=== PATIENT | male | born 2005 | race Hispanic/Latino ===

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

== ENCOUNTER 2023-03-28 20:20 | Emergency (ER) | payer MEDICAID ==
[~2023-03-28 20:20] MED LIST: CEPH500B PO; PHEN-846 PO
== END 2023-03-28 20:40 | disposition left against medical advice (07) ==
LOC: EDH 20:20
DX: S69.91XA Unspecified injury of right wrist, hand and finger(s), initial encounter (principal); Z53.21 Procedure and treatment not carried out due to patient leaving prior to being seen by health care provider; X58.XXXA Exposure to other specified factors, initial encounter; Y93.89 Activity, other specified; Y92.89 Other specified places as the place of occurrence of the external cause; Y99.8 Other external cause status

== ENCOUNTER 2024-07-22 23:48 | Emergency (ER) | payer MEDICAID ==
[~2024-07-22] VITALS: Ht 172.7 cm; Wt 61.2 kg
--- NOTE | 2024-07-23 | ERN ---
ED Note History of Present Illness Stated Complaint: CP Chief Complaint: Chest Pain Time Seen by MD: 23:52 Dictation: PATIENT IS A 18-YEAR-OLD MALE HERE WITH HIS MOTHER WITH COMPLAINTS OF LEFT ANTERIOR CHEST PAIN THAT IS LOCALIZED AND CAN BE REPRODUCED WITH PALPATION HE HAS HAD FOR ONE WEEK. NO JAW PAIN NO ARM PAIN NO BACK PAIN. NO HISTORY OF CAD. PATIENT STATES THAT HE HAS HAD IT SINCE TUESDAY BUT DID NOT TELL HIS MOTHER UNTIL TONIGHT. NO HISTORY OF CARDIAC DISEASE HYPERTENSION DIABETES NO DRUG USE. Allergies: Coded Allergies: No Known Drug Allergies (Unverified Allergy, Unknown, 01/17/19) Home Meds Active Scripts Phenazopyridine HCl (Pyridium) 100 Mg Tab, 100 MG PO TID for 3 Days, #9 TAB Prov:JACK CERNA 10/12/20 Cephalexin Monohydrate (Keflex) 500 Mg Cap, 500 MG PO TID for 7 Days, #21 CAP Prov:JACK CERNA 10/12/20 Past Medical History Past Medical History: No Pertinent History Additional Past Medical Hx: ADHD Surgical History: None Family History: Negative Social History: Negative RN Note Reviewed/Agreed w/PFSH: Yes Review of System Dictation CONSTITUTIONAL: NEGATIVE EXCEPT FOR HPI HEAD/FACE: NEGATIVE EXCEPT FOR HPI EENT: NEGATIVE EXCEPT FOR HPI RESPIRATORY: NEGATIVE EXCEPT FOR HPI LEFT ANTERIOR CHEST PAIN GASTROINTESTINAL/ABDOMINAL: NEGATIVE EXCEPT FOR HPI GENITOURINARY: NEGATIVE EXCEPT FOR HPI MUSCULOSKELETAL: NEGATIVE EXCEPT FOR HPI INTEGUMENTARY: NEGATIVE EXCEPT FOR HPI NEUROLOGICAL/PSYCH: NEGATIVE EXCEPT FOR HPI HEMATOLOGIC/LYMPHATIC: NEGATIVE EXCEPT FOR HPI ALL SYSTEMS NEGATIVE, EXCEPT NOTED ABOVE. 13 POINT REVIEW OF SYSTEMS ASSESSED AND ALL NEGATIVE EXCEPT FOR ABOVE. Initial Vital Sign VS Vital Signs Date Time Temp Pulse Resp B/P (MAP) Pulse Ox O2 Delivery O2 Flow Rate FiO2 07/22/24 23:49 98.1 71 19 115/74 100 Room Air 07/23/24 00:12 0 21 Physical Exam Dictation VITAL SIGNS REVIEWED GENERAL APPEARANCE: ALERT, ORIENTED X 3, NO ACUTE DISTRESS, WELL DEVELOPED, NOURISHED. HEAD AND FACE: NON-TRAUMATIC. EYES: PERRL, PINK CONJUNCTIVAS, EYELID NO TRAUMA, ANTERIOR CHAMBER WITH ARCUS SENILIS. EARS: PINNAS INTACT AND NO SIGNS OF TRAUMA OR ERYTHEMA EAR CANALS CLEAR AND NO DISCHARGE TM NO ERYTHEMA NOSE: NO DISCHARGE, NO BLEEDING. OROPHARYNX: MOUTH NORMAL, TONGUE PINK, PHARYNX CLEAR,NO ERYTHEMA, TONSILS NO EXUDATES, NO ABSCESSES NOTED, MUCOUS MEMBRANE MOIST NECK: SUPPLE, NON-TENDER, NO THYROMEGALY, NO MASSES, NO JVD, NO BRUITS BREAST:DEFERRED CHEST: LEFT ANTERIOR CHEST WALL TENDERNESS, NO CREPITUS, NO PARADOXICAL MOVEMENT, NO RETRACTIONS PALPATION REPRODUCES PAIN LUNGS:CLEAR, WELL-VENTILATED, SYMMETRIC, NO RALES, NO WHEEZING, NO RHONCHI, NO STRIDOR, GOOD BREATH SOUNDS BILATERALLY HEART: REGULAR RATE, REGULAR RHYTHM, NO MURMUR, NO GALLOPS VASCULAR: NO PERIPHERAL EDEMA, ABDOMEN: SOFT, POSITIVE BOWEL SOUNDS, NONDISTENDED, NO GUARDING, NONTENDER, NO REBOUND, NO MASSES NO HEPATOMEGALY, NO SPLENOMEGALY, NO NAVARRO'S SIGN, NO HERNIAS. RECTAL: DEFERRED GENITAL: DEFERRED NEUROLOGICAL: NORMAL SPEECH, MOTOR FUNCTION INTACT, SENSORY FUNCTION INTACT MUSCULOSKELETAL: NECK NONTENDER, FULL RANGE OF MOTION, BACK NONTENDER, FULL RANGE OF MOTION, EXTREMITIES: NONTENDER, FULL RANGE OF MOTION SKIN: COLOR PINK, DRY, NO TURGOR, NO RASH, NO LACERATIONS, NO ABRASIONS, NO CONTUSIONS. LYMPHATIC: DEFERRED Results (Laboratory/Radiology) Laboratory/Radiology Laboratory Tests Test 07/23/24 00:11 Troponin I High Sensitivity 5 ng/L (4-75) Labs Reviewed?: Yes EKG: (+) NSR EKG Comment: EKG NORMAL SINUS RHYTHM/HEART RATE 70/AXIS NORMAL/MIL EARLY REPOLARIZATION LEAD SEEN V1 TWO ED Course ED Course Orders Procedure Category Date Status Time Vital Signs Per CPOE 07/22/24 Transmitted Routine 23:53 12 Lead Ekg Tracing- EKG 07/22/24 Logged Technical 23:53 Cardiac Monitoring CPOE 07/22/24 Transmitted 23:53 Troponin I High LAB 07/22/24 Complete Sensitivity 23:53 Vital Signs Date Time Temp Pulse Resp B/P (MAP) Pulse Ox O2 Delivery O2 Flow Rate FiO2 07/23/24 00:12 98.2 69 14 119/71 100 Room Air* 0 21 07/22/24 23:49 98.1 71 19 115/74 100 Room Air /0045 EKG NORMAL TROPONIN FIVE PATIENT DISCHARGED HOME WITH ATYPICAL CHEST PAIN TOLD TO SEE HIS PRIMARY CARE DOCTOR TOMORROW Medical Decision Making MDM MEDICAL DECISION-MAKING BASED ON EKG AND TROPONIN. EKG NORMAL SINUS RHYTHM TROPONIN LESS THAN FIVE PATIENT DISCHARGED HOME WITH ATYPICAL CHEST PAIN TOLD TO SEE HIS DOCTOR ON TUESDAY. DX & DISP Disposition: Discharge Departure Impression: Primary Impression: Atypical chest pain Condition: Stable Additional Instructions: FOLLOW-UP WITH PRIMARY CARE PROVIDER IN 1 TO 2 DAYS. TAKE MEDICATIONS DIRECTED HERE IN THE EMERGENCY ROOM. OKAY TO CONTINUE HOME MEDICATIONS UNLESS OTHERWISE DISCUSSED DURING YOUR VISIT IN THE EMERGENCY ROOM TODAY. RETURN TO YOUR NEAREST EMERGENCY ROOM IF SYMPTOMS WORSEN OR IF THERE IS NO IMPROVEMENT. CALL 911 IF YOU NEED IMMEDIATE ASSISTANCE. TAKE TYLENOL OR MOTRIN [id number] NEEDED AND IF NO CONTRAINDICATIONS ARE PRESENT. INCREASE ORAL HYDRATION. A WOUND CULTURE OR URINE CULTURE WAS ORDERED HERE IN THE EMERGENCY ROOM DEPARTMENT PLEASE FOLLOW-UP WITH PRIMARY CARE PROVIDER AND ADVISE THEM TO GET REPEAT PORTS FROM OUR FACILITY. IF YOU HAD ANY LAVERN WRAP/SPLINTS THAT WERE APPLIED HERE, PLEASE DO NOT REMOVE THEM UNTIL YOU SEE YOUR PRIMARY CARE OR SPECIALTY. SEE YOUR PRIMARY CARE DOCTOR TOMORROW FOR FOLLOW UP AND MANAGEMENT OF YOUR ATYPICAL CHEST PAIN. OTHERWISE DIET AND ACTIVITY TOLERATED. Referrals: SELF,REFERRAL (PCP) Time of Disposition: 00:46 I have reviewed the case, and I agree with, Diagnosis and Plan OLEGARIO BAILEY NP Jul 22, 2024 23:59
[2024-07-23 00:56] VITALS: BP 116/73; PULSE 65; RESP 14; TEMP 98; O2SAT 100
--- NOTE | 2024-07-23 07:54 | EKG ---
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
== END 2024-07-23 00:57 | disposition home or self-care (01) ==
LOC: EDH 23:48
DX: R07.89 Other chest pain (principal); Z79.899 Other long term (current) drug therapy
CPT/HCPCS: 84484; 93005; 99284

== ENCOUNTER 2024-09-20 16:35 | Emergency (ER) | payer MEDICAID ==
[~2024-09-20] VITALS: Ht 175.3 cm; Wt 61.2 kg
[2024-09-20] MEDS: DiphenhydrAMINE HCL 50 MG/ML VIAL IV ONE (18:37)
[2024-09-20] MEDS: 0.9%NACL 1000ML 1,000 ML IV ONE (18:37)
[2024-09-20] MEDS: ketOROlac 15MG/ML VIAL (15MG/ML) IV ONE (18:37)
[2024-09-20 18:44] LABS: BASOPHILS # (AUTO) 0.04 K/uL (0.00-0.20); BASOPHILS % (AUTO) 0.5 % (0.0-5.0); EOSINOPHILS # (AUTO) 0.33 K/uL (0.00-0.70); EOSINOPHILS % (AUTO) 4.2 % (0.0-8.0); HEMATOCRIT 46.1 % (42-54); IMMATURE GRANULOCYTE ABSOLUTE 0.04 K/uL (0-1); LYMPHOCYTES # (AUTO) 2.5 K/uL (1.0-4.8); MEAN CORPUSCULAR HEMOGLOBIN 30.7 pg (27.0-33.0); MEAN CORPUSCULAR HGB CONC 33.2 g/dL (32.0-36.0); MEAN CORPUSCULAR VOLUME 92.4 fL (80-100); MONOCYTES # (AUTO) 0.7 K/uL (0.1-1.0); MONOCYTES % (AUTO) 9.1 % (3.0-13.0); NEUTROPHILS # (AUTO) 4.2 K/uL (1.8-7.7); NEUTROPHILS % (AUTO) 53.7 % (40.0-77.0); PLATELET COUNT (AUTO) 291 K/uL (130-400); RED BLOOD CELL COUNT(AUTO) 4.99 MIL/uL (4.50-6.20); RED CELL DISTRIBUTION WIDTH 13.1 % (11.0-15.5); WHITE BLOOD COUNT (AUTO) 7.8 K/uL (4.8-10.8)
--- NOTE | 2024-09-20 18:47 | ERN ---
General Chief Complaint: Headache Stated Complaint: SEVERE HEADACHE Time Seen by MD: 16:40 Time Seen by Midlevel: 16:40 Source: patient History of Present Illness Allergies: Coded Allergies: No Known Drug Allergies (Unverified Allergy, Unknown, 01/17/19) Home Meds Active Scripts Phenazopyridine HCl (Pyridium) 100 Mg Tab, 100 MG PO TID for 3 Days, #9 TAB Prov:JACK CERNA 10/12/20 Cephalexin Monohydrate (Keflex) 500 Mg Cap, 500 MG PO TID for 7 Days, #21 CAP Prov:JACK CERNA 10/12/20 Past Medical History Past Medical History: Other Medical History Other: ADHD Past Surgical History: None Family History Family History: Negative Social History Social History: Negative Results Laboratory and Microbiology Lab and Micro Result Laboratory Tests Test 09/20/24 18:32 White Blood Count 7.8 K/uL (4.8-10.8) Red Blood Count 4.99 MIL/uL (4.50-6.20) Hemoglobin 15.3 g/dL (14.0-18.0) Hematocrit 46.1 % (42-54) Mean Corpuscular Volume 92.4 fL (80-100) Mean Corpuscular Hemoglobin 30.7 pg (27.0-33.0) Mean Corpuscular Hemoglobin Concent 33.2 g/dL (32.0-36.0) Red Cell Distribution Width 13.1 % (11.0-15.5) Platelet Count 291 K/uL (130-400) Mean Platelet Volume 9.9 fL (7.5-10.5) Immature Granulocyte % (Auto) 0.5 % (0-1) Neutrophils (%) (Auto) 53.7 % (40.0-77.0) Lymphocytes (%) (Auto) 32.0 % (21.0-51.0) Monocytes (%) (Auto) 9.1 % (3.0-13.0) Eosinophils (%) (Auto) 4.2 % (0.0-8.0) Basophils (%) (Auto) 0.5 % (0.0-5.0) Neutrophils # (Auto) 4.2 K/uL (1.8-7.7) Lymphocytes # (Auto) 2.5 K/uL (1.0-4.8) Monocytes # (Auto) 0.7 K/uL (0.1-1.0) Eosinophils # (Auto) 0.33 K/uL (0.00-0.70) Basophils # (Auto) 0.04 K/uL (0.00-0.20) Absolute Immature Granulocyte (auto 0.04 K/uL (0-1) Nucleated Red Blood Cells 0.0 % (0.0-0.19) ED Course Orders Procedure Category Date Status Time Cbc With Differential LAB 09/20/24 Complete 18:07 Basic Metabolic Panel LAB 09/20/24 In Process 18:07 0.9%Nacl 1000ml (Ns PHA 09/20/24 Complete 1000ml) 18:30 Ketorolac PHA 09/20/24 Complete Tromethamine 15mg/Ml 18:30 Diphenhydramine Hcl PHA 09/20/24 Complete (Benadryl Inj) 18:30 Current Medications Medications (Trade) Dose Ordered Sig/Cassandra Route PRN Reason Start Time Stop Time Status Last Admin Dose Admin Diphenhydramine HCl (BENAdryl INJ) 25 mg ONCE ONCE IV 09/20/24 18:30 09/20/24 18:31 DC 09/20/24 18:37 Ketorolac Tromethamine (toRADol) 15 mg ONCE ONCE IV 09/20/24 18:30 09/20/24 18:31 DC 09/20/24 18:37 Sodium Chloride 1,000 ml @ 0 mls/hr ONCE ONCE IV 09/20/24 18:30 09/20/24 18:31 DC 09/20/24 18:37 Vital Signs Date Time Temp Pulse Resp B/P (MAP) Pulse Ox O2 Delivery O2 Flow Rate FiO2 09/20/24 17:07 98.1 73 16 106/80 100 Room Air* 0 21 09/20/24 16:39 98.1 73 16 106/80 100 Room Air 0 DX & DISP Disposition: Discharge Departure Impression: Primary Impression: Headache, unspecified Condition: Stable Referrals: YORDY SIMMONS MD (PCP) I have reviewed the case, and I agree with, Diagnosis and Plan I performed the substantive portion of the visit. I have reviewed and personally made and approve the management plan that is documented in the note by myself or the JENNIFER. I acknowledge for responsibility for the patient's management plan. AFSANEH HOWARD September 20, 2024 18:47
[2024-09-20 18:51] VITALS: BP 111/75; PULSE 70; RESP 16; TEMP 98.1; O2SAT 100
[2024-09-20 18:52] LABS: CREATININE 0.8 mg/dL (0.5-1.3); POTASSIUM 4.6 mmol/L (3.5-5.1)
== END 2024-09-20 18:52 | disposition home or self-care (01) ==
LOC: EDH 16:35
DX: R51.9 Headache, unspecified (principal); Z79.899 Other long term (current) drug therapy
CPT/HCPCS: 99284; 96374; 96375; 80048; 85025; 36415; J1885; J1200; J7030